=== PATIENT | male | born 1980 ===

== ENCOUNTER 2018-08-02 07:28 | Outpatient (CLI) | payer OTHER ==
[2018-08-02] MEDS ORDERED: ISOVUE-370 76%-LOCM 1 ML ONE (10:02)
--- NOTE | 2018-08-02 10:52 | CT ---
CT ABDOMEN AND PELVIS WITH AND WITHOUT IV CONTRAST: HISTORY: Inguinal hernia. FINDINGS: The lung bases are clear. The liver, spleen, pancreas, adrenal glands, and kidneys are normal. No f ree air, free fluid, or lymphadenopathy is seen in the abdomen or pelvis. No calcified gallstones ar e noted. The small bowel loops are not abnormally dilated. A small fat-containing left inguinal her cherie is present. There are mild degenerative changes in the spine. IMPRESSION: Small fat-containing left inguinal hernia. POS: [facility]
== END 2018-08-02 07:29 | disposition home or self-care (01) ==
LOC: BICCT 07:28
PROVIDERS: ATTEND Family Medicine
DX: K40.90 Unilateral inguinal hernia, without obstruction or gangrene, not specified as recurrent (principal)
CPT/HCPCS: 74178